=== PATIENT | male | born 1945 | race Asian ===

== ENCOUNTER 2022-11-03 16:12 | Emergency (ER) | payer MEDICARE, OTHER ==
[~2022-11-03] VITALS: Ht 165.1 cm; Wt 75.3 kg
[2022-11-03 17:56] VITALS: BP 107/66; TEMP 98.5; O2SAT 97
== END 2022-11-03 17:59 | disposition home or self-care (01) ==
LOC: ER 16:24
DX: S40.011A Contusion of right shoulder, initial encounter (principal); M54.2 Cervicalgia; V49.9XXA Car occupant (driver) (passenger) injured in unspecified traffic accident, initial encounter; Y93.89 Activity, other specified; Y92.89 Other specified places as the place of occurrence of the external cause; Y99.8 Other external cause status
CPT/HCPCS: 72125; 73030; A4663